=== PATIENT | male | born 1985 | race African-American/Black ===

== ENCOUNTER 2016-07-01 20:05 | Emergency (ER) | payer MEDICAID ==
[2016-07-01 22:23] LABS: UDS - AMPHET POSITIVE QUAL (NEGATIVE); UDS - BARB NEGATIVE QUAL (NEGATIVE); UDS - BENZO NEGATIVE QUAL (NEGATIVE); UDS - COCAINE POSITIVE QUAL (NEGATIVE); UDS - METH NEGATIVE QUAL (NEGATIVE); UDS - OPIATE NEGATIVE QUAL (NEGATIVE); UDS - PCP NEGATIVE QUAL (NEGATIVE); UDS - THC NEGATIVE QUAL (NEGATIVE)
== END 2016-07-01 22:29 | disposition left against medical advice (07) ==
LOC: D.ER 20:05
PROVIDERS: Physician Assistant Medical
DX: Z76.5 Malingerer [conscious simulation] (principal); F17.200 Nicotine dependence, unspecified, uncomplicated

== ENCOUNTER 2016-07-08 09:36 | Emergency (ER) | payer MEDICAID | END 2016-07-08 10:36 | disposition home or self-care (01) | LOC: D.ER 09:36 | DX: Z03.89 Encounter for observation for other suspected diseases and conditions ruled out (principal) ==